=== PATIENT | female | born 1965 | race Caucasian/White ===

== ENCOUNTER 2022-09-07 13:29 | Emergency (ER) | payer SELFPAY ==
[~2022-09-07] VITALS: Ht 170.2 cm; Wt 61.4 kg
[2022-09-07] VITALS (9 sets, daily range): BP systolic 144–165; BP diastolic 88–99
[2022-09-07 14:20] LABS: HEMATOCRIT 41.3 % (37.0-47.0); HEMOGLOBIN 14.5 g/dl (12.0-16.0); IMMATURE GRANULOCYTES 0.2 % (0.0-5.0); MEAN CELL VOLUME 90.6 fL CALC (80.0-100.0); MEAN CORPUSCULAR HGB 31.8 pG CALC (26.0-32.0); MEAN CORPUSCULAR HGB CONC 35.1 g/dL CAL (32.0-36.0); NEUT# 3.56 thou/uL (2.00-7.15); RED BLOOD COUNT 4.56 mill/uL (4.20-5.60); RED CELL DISTRI WIDTH 11.5 % (11.5-15.5)
[2022-09-07 14:30] LABS: ALKALINE PHOSPHATASE 113 u/l (38-126); ANION GAP 22 (6-22 (CALC)); BUN 4 mg/dL (7-17); BUN/CREATININE RATIO 8 (12-20 (CALC)); CARBON DIOXIDE 17 mmol/l (22-30); CHLORIDE 90 mmol/l (95-108); CREATININE 0.5 mg/dL (0.5-1.0); GFR FOR AFR.AMER. > 60 ML/MIN (>=60 (CALC)); GFR OTHER RACES > 60 ML/MIN (>=60 (CALC)); LIPASE 144 u/l (23-300); SGOT/AST 44 u/l (14-36); SODIUM 126 mmol/l (137-146); TOTAL PROTEIN 8.1 g/dL (6.3-8.2)
[2022-09-07] MEDS ORDERED: CEPHALEXIN500 MG PO (15:34)
[2022-09-07] MEDS ORDERED: TERBINAFINE1 % EX (15:34)
== END 2022-09-07 16:14 | disposition home or self-care (01) | DRG 603 ==
LOC: ED 13:29
PROVIDERS: Family Medicine
DX: L03.116 Cellulitis of left lower limb (principal); B35.2 Tinea manuum

== ENCOUNTER 2024-10-12 14:17 | Emergency (ER) | payer SELFPAY ==
[2024-10-12] VITALS (13 sets, daily range): BP systolic 104–191; BP diastolic 69–132
[~2024-10-12] VITALS: Ht 170.2 cm; Wt 47.0 kg
[~2024-10-12 14:17] MED LIST: CEPHALEXIN500 MG PO; TERBINAFINE1 % EX
[2024-10-12] MEDS ORDERED: LORazepam 2 MG/ML IM ONE (14:35)
[2024-10-12] MEDS ORDERED: METOPROLOL TARTRATE 5 MG/5 ML VIAL IV ONE (14:35)
[2024-10-12 15:03] LABS: BASO% 0.5 % (0-3); EOS% 0.3 % (0-8); HEMATOCRIT 38.6 % (37.0-47.0); HEMOGLOBIN 13.6 g/dl (12.0-16.0); IMMATURE GRANULOCYTES 0.3 % (0.0-5.0); LYMPH% 17.4 % (15-41); MEAN CELL VOLUME 95.5 fL CALC (80.0-100.0); MEAN CORPUSCULAR HGB 33.7 pG CALC (26.0-32.0); MEAN CORPUSCULAR HGB CONC 35.2 g/dL CAL (32.0-36.0); NEUT# 4.79 thou/uL (2.00-7.15); NEUT% 73.5 % (42-76); RED BLOOD COUNT 4.04 mill/uL (4.20-5.60); RED CELL DISTRI WIDTH 11.4 % (11.5-15.5)
[2024-10-12 15:16] LABS: ALBUMIN 4.7 g/dL (3.2-5.0); BILIRUBIN, TOTAL 1.1 mg/dL (0.02-1.3); CREATININE 0.6 mg/dL (0.5-1.0); MAGNESIUM 1.7 mg/dL (1.6-2.3); POTASSIUM 4.6 mmol/l (3.5-5.1); TOTAL PROTEIN 7.8 g/dL (6.3-8.2)
[2024-10-12 15:46] LABS: TSH, 3RD GENERATION 2.05 uIU/mL (0.47 - 4.68)
[2024-10-12 17:34] LABS: URINE BILIRUBIN - DIPSTICK Negative (NEGATIVE); URINE BLOOD DIPSTICK Negative (NEGATIVE); URINE GLUCOSE - DIPSTICK Negative (NEGATIVE); URINE KETONE Negative (NEGATIVE); URINE LEUK ESTERASE Negative (NEGATIVE); URINE NITRITE - DIPSTICK Negative (Negative); URINE PROTEIN - DIPSTICK Negative (NEG-TRACE); URINE UROBILINOGEN - DIPSTICK 0.2 E.U./dL (0.2)
[2024-10-12 17:35] LABS: URINE COLOR Yellow
[2024-10-12] MEDS ORDERED: GABAPENTIN 300 MG/CAP PO ONE (20:05)
[2024-10-12] MEDS ORDERED: THIAMINE HCL 100 MG/ML 2ML VIAL IV ONE (20:05)
[2024-10-12] MEDS ORDERED: LACTATED RINGER'S 1,000 ML IV ONE (20:05)
[2024-10-12] MEDS ORDERED: LORazepam 2 MG/ML IV ONE (20:05)
[2024-10-12] MEDS ORDERED: GABAPENTIN300 M3 PO (20:26)
[2024-10-12] MEDS ORDERED: LABETALOL HCL 20 MG/ 4 ML CARTRG IV ONE (21:05)
[2024-10-12] MEDS ORDERED: CLONIDINE0.1 MG PO (21:43)
== END 2024-10-12 22:00 | disposition home or self-care (01) | DRG 897 ==
LOC: ED 14:17
PROVIDERS: Family Medicine
DX: F10.139 Alcohol abuse with withdrawal, unspecified (principal); Y90.1 Blood alcohol level of 20-39 mg/100 ml; I10 Essential (primary) hypertension; G90.9 Disorder of the autonomic nervous system, unspecified; F41.9 Anxiety disorder, unspecified
CPT/HCPCS: J2060